=== PATIENT | female | born 1970 | race Caucasian/White ===

== ENCOUNTER 2017-11-12 07:30 | Inpatient (IN) | payer OTHER ==
[~2017-11-12] VITALS: Ht 167.6 cm; Wt 74.8 kg
[~2017-11-12 07:30] MED LIST: BENADRYL25 MG PO; DURICEF 500 MG CAPSULE PO; OXYC1TAB9 PO; ZANTAC150 MG PO; [UNRECOGNIZED DRUG - OTHER] PO
[2017-11-12] MEDS ORDERED: AMBIEN10 MG PO (08:42)
== END 2017-11-17 11:17 | disposition home or self-care, planned readmission (81) | DRG 743 ==
LOC: SURH 11-14 07:00 → OB/GYN 11-14 08:40 → O/R 11-14 08:40 → OB/GYN 11-14 16:30
PROVIDERS: Obstetrics & Gynecology; Urology
PROC: 0UT97ZZ Resection of Uterus, Via Natural or Artificial Opening (ICD-10-PCS; principal; 2017-11-14 07:00)
PROC: 0TSC0ZZ Reposition Bladder Neck, Open Approach (ICD-10-PCS; 2017-11-14 07:00)
DX: D25.1 Intramural leiomyoma of uterus (principal); N72 Inflammatory disease of cervix uteri; N39.3 Stress incontinence (female) (male); N84.0 Polyp of corpus uteri; D64.89 Other specified anemias

== ENCOUNTER 2021-09-16 06:43 | Day surgery (SDC) | payer OTHER ==
[~2021-09-16 06:43] MED LIST changes: +AMBIEN10 MG PO
== END 2021-09-16 17:25 | disposition home or self-care (01) ==
LOC: CIR.AMB 06:43
PROVIDERS: ATTEND Surgery
DX: N60.91 Unspecified benign mammary dysplasia of right breast (principal); Z20.822 Contact with and (suspected) exposure to COVID-19; E78.00 Pure hypercholesterolemia, unspecified; Z86.16 Personal history of COVID-19